=== PATIENT | female | born 1940 | race Caucasian/White ===

== ENCOUNTER → 2016-08-20 | Outpatient (CLI) | payer MEDICARE | LOC: RAD 12:53 | PROVIDERS: ATTEND Family Medicine | DX: N63 Unspecified lump in breast (principal); N61.0 Mastitis without abscess | CPT/HCPCS: 76642; G0204 ==

== ENCOUNTER → 2016-08-25 | Outpatient (CLI) | payer MEDICARE | LOC: RAD 12:45 | PROVIDERS: ATTEND Surgery | DX: N63 Unspecified lump in breast (principal) | CPT/HCPCS: 76642; G0206 ==

== ENCOUNTER 2016-08-31 02:27 | Emergency (ER) | payer MEDICARE ==
[~2016-08-31] VITALS: Ht 160 cm; Wt 81.5 kg
[~2016-08-31 02:27] MED LIST: ASPI-504 PO; NAPR220T76 PO; PREMARIN VAG CR45 GM VG; RALO60TA PO
--- OUTSIDE RECORDS SUMMARY | 2016-08-31 02:30 | XMS REPORT | Continuity of Care Document ---
Author Author [facility] Address Unknown Phone Unavailable Allergies Active Description Code Type Severity Reaction Onset Reported/Identified Relationship to Patient Clinical Status Yes Penicillins [id number] Drug Allergy Mild Hives 01/03/2014 Medications Problems Date Dx Coded Attending Type Code Diagnosis Diagnosed By 10/12/2012 Ot 723.1 10/12/2012 Ot 729.1 12/03/2012 Ot 723.1 12/03/2012 Ot V57.1 04/05/2013 MEENA MANUEL, VIJAY W Ot 729.1 04/05/2013 MEENA MANUEL, VIJAY W Ot V57.1 01/03/2014 GITA MANUEL, SARAH Mojica Ot 786.05 01/03/2014 GITA MANUEL, SARAH Mojica Ot 786.50 01/03/2014 GITA MANUEL, SARAH [place] Ot 794.31 02/17/2014 MEENA MANUEL, VIJAY W Ot 410.92 02/17/2014 MEENA MANUEL, VIJAY W Ot 413.9 02/17/2014 MEENA MANUEL, VIJAY W Ot V57.89 07/05/2014 Ot V76.12 07/05/2014 Ot 723.1 07/05/2014 Ot 722.4 07/05/2014 Ot 723.1 07/05/2014 Ot 723.1 07/05/2014 MEENA MANUEL, VIJAY W Ot 786.50 07/05/2014 MEENA MANUEL, VIJAY W Ot 790.99 07/21/2014 MEENA MANUEL, VIJAY W Ot V76.12 07/28/2014 MEENA MANUEL, VIJAY W Ot V76.12 08/20/2016 MEENA MANUEL, VIJAY W Ot N63 UNSPECIFIED LUMP IN BREAST 08/20/2016 MEENA MANUEL, VIJAY W Ot N63 UNSPECIFIED LUMP IN BREAST 08/23/2016 MEENA MANUEL, VIJAY W Ot N61.0 MASTITIS WITHOUT ABSCESS 08/23/2016 MEENA MANUEL, VIJAY W Ot N63 UNSPECIFIED LUMP IN BREAST 08/25/2016 ZHANG MANUEL, EDANJEL S Ot N63 UNSPECIFIED LUMP IN BREAST 08/25/2016 MEENA MANUEL, VIJAY W Ot N61.0 MASTITIS WITHOUT ABSCESS 08/25/2016 MEENA MANUEL, VIJAY W Ot N63 UNSPECIFIED LUMP IN BREAST 08/25/2016 ZHANG MANUEL, ELEAZAR S Ot N63 UNSPECIFIED LUMP IN BREAST 08/26/2016 ZHANG MANUEL, ELEAZAR S Ot N63 UNSPECIFIED LUMP IN BREAST 08/26/2016 ZHANG MANUEL, ELEAZAR S Ot N63 UNSPECIFIED LUMP IN BREAST 08/27/2016 ZHANG MANUEL, ELEAZAR S Ot N63 UNSPECIFIED LUMP IN BREAST Procedures Results Test Result Range PATHOLOGY - 08/20/16 13:00 PATHOLOGY WPM Encounters ACCT No. Visit Date/Time Discharge Status Pt. Type Provider Facility Loc./Unit Complaint [id number] 07/05/2014 09:24:00 2014 23:59:59 CLS Outpatient MEENA MANUEL, [facility] RAD [id number] 02/08/2014 10:30:00 2013 12:00:00 DIS Outpatient MEENA MANUEL, [facility] CR [id number] 01/09/2014 09:18:00 2013 23:59:59 CLS Outpatient [id number] 01/03/2014 18:30:00 2013 23:59:59 CLS Outpatient MEENA MANUEL, [facility] EMS [id number] 01/03/2014 16:50:00 2013 19:30:00 DIS Emergency GITA MANUEL, [facility] ED [id number] 01/27/2013 13:45:00 2012 00:01:00 DIS Outpatient MEENA MANUEL, [facility] PT [id number] 09/03/2016 09:30:00 PEN Preadmit ZHANG MANUEL, [facility] RAD LT. MASTECTOMY W/SENTINEL NODE BX. [id number] 08/31/2016 02:27:00 PEN Preadmit [facility] ED [id number] 08/25/2016 12:45:00 ACT Outpatient ZHANG MANUEL, ANJEL [facility] RAD [id number] 08/20/2016 12:53:00 ACT Outpatient MEENA MANUEL, [facility] RAD [facility] [id number] 11/25/2012 13:45:00 Document Registration [id number] 10/21/2012 13:17:00 Document Registration [id number] 10/12/2012 10:49:00 Document Registration [id number] 08/10/2012 13:26:00 Document Registration [id number] 07/30/2012 11:20:00 Document Registration [id number] 06/10/2012 12:41:00 Document Registration [id number] 01/02/2012 13:51:00 Document Registration
--- OUTSIDE RECORDS SUMMARY | 2016-08-31 02:33 | XMS REPORT | Continuity of Care Document ---
Author Author [facility] Address Unknown Phone Unavailable Allergies Active Description Code Type Severity Reaction Onset Reported/Identified Relationship to Patient Clinical Status Yes Penicillins [id number] Drug Allergy Mild Hives 01/03/2014 Medications Problems [...] Status Pt. Type Provider Facility Loc./Unit Complaint [id number] 07/05/2014 09:24:00 2014 23:59:59 CLS Outpatient MEENA MANUEL, [facility] RAD [id number] 02/08/2014 10:30:00 2013 12:00:00 DIS Outpatient MEENA MANUEL, [facility] CR [id number] 01/09/2014 09:18:00 2013 23:59:59 CLS Outpatient [id number] 01/03/2014 18:30:00 2013 23:59:59 CLS Outpatient MEENA MANUEL, [facility] EMS [id number] 01/03/2014 16:50:00 2013 19:30:00 DIS Emergency GITA MANUEL, SARAH [facility] ED [id number] 01/27/2013 13:45:00 2012 00:01:00 DIS Outpatient MEENA MANUEL, [facility] PT [id number] 09/03/2016 09:30:00 PEN Preadmit ZHANG MANUEL, [facility] RAD LT. MASTECTOMY W/SENTINEL NODE BX. [id number] 08/31/2016 02:29:00 ACT Emergency EVELYN MANUEL, [facility] ED [id number] 08/25/2016 12:45:00 ACT Outpatient ZHANG MANUEL, [facility] RAD [id number] 08/20/2016 12:53:00 ACT Outpatient MEENA MANUEL, VIJAY [facility] RAD MASTITIS [id number] 11/25/2012 13:45:00 Document Registration [id number] 10/21/2012 13:17:00 Document Registration [id number] 10/12/2012 10:49:00 Document Registration [id number] 08/10/2012 13:26:00 Document Registration [id number] 07/30/2012 11:20:00 Document Registration [id number] 06/10/2012 12:41:00 Document Registration [id number] 01/02/2012 13:51:00 Document Registration
[2016-08-31] MEDS ORDERED: LSRT50T PO (02:42)
[2016-08-31] MEDS ORDERED: MULT-1034 PO (02:42)
[2016-08-31] MEDS ORDERED: ATOR20TA PO (02:42)
[2016-08-31] MEDS ORDERED: PANT40TA3 PO (02:42)
[2016-08-31] MEDS ORDERED: diphenhydrAMINE 50 MG/ML INJ (BENADRYL) IV ONE ×2 (02:45→03:45)
[2016-08-31] MEDS ORDERED: FAMOTIDINE IV 20 MG in SODIUM CHLORIDE VIAL (PF) 10 ML IV ONE (02:45)
[2016-08-31] MEDS ORDERED: methylPREDNISolone 125 MG (Solu-MEDROL) VIAL IV ONE (02:45)
[2016-08-31] MEDS ORDERED: PRED20TA PO (02:58)
[2016-08-31] MEDS ORDERED: SODIUM CHLORIDE FLUSH 10 ML SYR IV PRN (03:05)
--- NOTE | 2016-08-31 03:46 | NUR ---
ITCHING BETTER BUT RASH UNCHANGED
--- NOTE | 2016-08-31 04:20 | NUR ---
itching better rash still there
[2016-08-31] MEDS ORDERED: CETIRIZINE 1 MG/ML PO ONE (05:05)
[2016-08-31] MEDS ORDERED: LORATADINE (CLARITIN) 10 MG TAB PO ONE (05:15)
[2016-08-31 05:16] VITALS: BP 143/65
== END 2016-08-31 05:29 | disposition home or self-care (01) ==
LOC: ED 02:29
DX: L50.0 Allergic urticaria (principal); T36.1X5A Adverse effect of cephalosporins and other beta-lactam antibiotics, initial encounter
CPT/HCPCS: 96374; 96375; 96376; 99283; A9270; J1200; J2930; J3490; J7050

== ENCOUNTER → 2016-09-02 | Outpatient (CLI) | payer MEDICARE ==
[~2016-09-02] MED LIST changes: +ATOR20TA PO; +FLUT16SP NSEACH; +LSRT50T PO; +MULT-1034 PO; +PANT40TA3 PO; +PRED20TA PO; +TRM50T PO
[2016-09-02 09:10] LABS: BASOPHILS % (AUTO) 0 % (0-2); EOSINOPHILS % (AUTO) 0 % (0-4); LYMPHOCYTES # (AUTO) 1.3 X10^3; MEAN CORPUSCULAR HEMOGLOBIN 29.2 PG (26.0-34.0); MEAN CORPUSCULAR HGB CONC 32.3 g/dL (31.0-37.0); MEAN CORPUSCULAR VOLUME 91 FL (80-100); MEAN PLATELET VOLUME 9.4 FL (6.0-9.5); MONOCYTES # (AUTO) 0.3 X10^3; MONOCYTES % (AUTO) 3 % (3-11); NEUTROPHILS # (AUTO) 7.1 X10^3; NEUTROPHILS % (AUTO) 81 % (51-67); PLATELET COUNT 247 10^3uL (150-450); WHITE BLOOD COUNT 8.71 10^3uL (4.0-11.0)
[2016-09-02 09:44] LABS: ALBUMIN 3.8 g/dL (3.4-5.0); CALCULATED IONIZED CALCIUM 4.1 mg/dL (3.8-4.6); TOTAL PROTEIN 7.3 g/dL (6.4-8.5)
--- NOTE | 2016-09-02 11:07 | Diagnostic Imaging Report ---
INDICATION: Breast cancer PA and lateral chest obtained at 9:24 a.m., there is no prior study for comparison. FINDINGS: Heart is mildly enlarged. There is some linear scarring or atelectasis in the left base. Lungs are otherwise clear. There is no pneumothorax or pleural fluid. Pacemaker is unchanged with right atrial and right ventricular leads. There are surgical clips over the left axilla. IMPRESSION: Mild cardiomegaly. No acute consolidation or pleural fluid. Some mild linear scarring or atelectasis in the left base is noted. Dictated by: Dictated on workstation # [id number]
== END ==
LOC: LAB 09:00
PROVIDERS: ATTEND Surgery
DX: Z01.818 Encounter for other preprocedural examination (principal); R05 Cough; D05.12 Intraductal carcinoma in situ of left breast; I10 Essential (primary) hypertension; Z95.0 Presence of cardiac pacemaker; I44.1 Atrioventricular block, second degree
CPT/HCPCS: 36415; 71020; 80053; 85025; 93005

== ENCOUNTER 2016-09-03 08:13 | Day surgery (SDC) | payer MEDICARE, OTHER ==
[2016-09-03] VITALS (13 sets, daily range): BP systolic 79–153; BP diastolic 42–80
[~2016-09-03] VITALS: Ht 160 cm; Wt 81.8 kg
[~2016-09-03 08:13] MED LIST changes: +ACETAMINOPHEN 500 MG TAB (TYLENOL) PO SCH; +CLINDAMYCIN IV SCH; -FLUT16SP NSEACH; +LACTATED RINGERS 1,000 ML IV SCH; +SODIUM CHLORIDE FLUSH 3 ML SYR IV SCH; +SODIUM CHLORIDE IV SCH; -TRM50T PO
--- OUTSIDE RECORDS SUMMARY | 2016-09-03 08:17 | XMS REPORT | Continuity of Care Document ---
Author Author [facility] Address Unknown Phone Unavailable Allergies Active Description Code Type Severity Reaction Onset Reported/Identified Relationship to Patient Clinical Status Yes Cephalosporins [id number] Drug Allergy Severe HIVES 08/31/2016 Yes Penicillins [id number] Drug Allergy Mild Hives 08/31/2016 Medications Problems Date Dx Coded Attending Type Code Diagnosis Diagnosed By 10/12/2012 Ot 723.1 10/12/2012 Ot 729.1 12/03/2012 Ot 723.1 12/03/2012 Ot V57.1 04/05/2013 MEENA MANUEL, VIJAY [place] Ot 729.1 04/05/2013 MEENA MANUEL, VIJAY [place] Ot V57.1 01/03/2014 GITA MANUEL, SARAH Mojica Ot 786.05 01/03/2014 GITA MANUEL, SARAH [place] Ot 786.50 01/03/2014 GITA MANUEL, SARAH [place] Ot 794.31 02/17/2014 MEENA MANUEL, VIJAY [place] Ot 410.92 02/17/2014 MEENA MANUEL, VIJAY W Ot 413.9 02/17/2014 MEENA MANUEL, VIJAY W Ot V57.89 07/05/2014 Ot V76.12 07/05/2014 Ot 723.1 07/05/2014 Ot 722.4 07/05/2014 Ot 723.1 07/05/2014 Ot 723.1 07/05/2014 MEENA MANUEL, VIJAY W Ot 786.50 07/05/2014 MEENA MANUEL, VIJAY W Ot 790.99 07/21/2014 MEENA MANUEL, VIJAY [place] Ot V76.12 07/28/2014 MEENA MANUEL, VIJAY [place] Ot V76.12 08/20/2016 MEENA MANUEL, VIJAY W Ot N63 UNSPECIFIED LUMP IN BREAST 08/20/2016 MEENA MANUEL, VIJAY [place] Ot N63 UNSPECIFIED LUMP IN BREAST 08/23/2016 MEENA MANUEL, VIJAY W Ot N61.0 MASTITIS WITHOUT ABSCESS 08/23/2016 MEENA MANUEL, VIJAY W Ot N63 UNSPECIFIED LUMP IN BREAST 08/25/2016 ZHANG MANUEL, EDWARD S Ot N63 UNSPECIFIED LUMP IN BREAST 08/25/2016 MEENA MANUEL, VIJAY W Ot N61.0 MASTITIS WITHOUT ABSCESS 08/25/2016 MEENA MANUEL, VIJAY W Ot N63 UNSPECIFIED LUMP IN BREAST 08/25/2016 ZHANG MANUEL, EDANJEL S Ot N63 UNSPECIFIED LUMP IN BREAST 08/26/2016 ZHANG MANUEL, EDANJEL S Ot N63 UNSPECIFIED LUMP IN BREAST 08/26/2016 ZHANG MANUEL, EDANJEL S Ot N63 UNSPECIFIED LUMP IN BREAST 08/27/2016 ZHANG MANUEL, EDANJEL S Ot N63 UNSPECIFIED LUMP IN BREAST Procedures Results Test Result Range PATHOLOGY - 08/20/16 13:00 PATHOLOGY WPM Encounters ACCT No. Visit Date/Time Discharge Status Pt. Type Provider Facility Loc./Unit Complaint [id number] 08/31/2016 02:29:00 2016 05:29:00 DIS Emergency EVELYN MANUEL, [facility] ED [id number] 07/05/2014 09:24:00 2014 23:59:59 CLS Outpatient MEENA MANUEL, [facility] RAD [id number] 02/08/2014 10:30:00 2013 12:00:00 DIS Outpatient MEENA MANUEL, [facility] CR [id number] 01/09/2014 09:18:00 2013 23:59:59 CLS Outpatient [id number] 01/03/2014 18:30:00 2013 23:59:59 CLS Outpatient MEENA MANUEL, [facility] EMS [id number] 01/03/2014 16:50:00 2013 19:30:00 DIS Emergency GITA MANUEL, [facility] ED [id number] 01/27/2013 13:45:00 2012 00:01:00 DIS Outpatient MEENA MANUEL, [facility] PT [id number] 09/03/2016 09:30:00 PEN Preadmit ZHANG MANUEL, [facility] RAD LT. MASTECTOMY W/SENTINEL NODE BX. [id number] 08/25/2016 12:45:00 ACT Outpatient ZHANG MANUEL, ELEAZAR [facility] RAD [id number] 08/20/2016 12:53:00 ACT Outpatient MEENA MANUEL, VIJAY [facility] RAD MASTITIS [id number] 11/25/2012 13:45:00 Document Registration [id number] 10/21/2012 13:17:00 Document Registration [id number] 10/12/2012 10:49:00 Document Registration [id number] 08/10/2012 13:26:00 Document Registration [id number] 07/30/2012 11:20:00 Document Registration [id number] 06/10/2012 12:41:00 Document Registration [id number] 01/02/2012 13:51:00 Document Registration
[2016-09-03] MEDS ORDERED: BUPIVACAINE/EPINEPHRINE 0.25%-1:200,000 (MARCAINE) 30 ML VIAL INJ ONE (10:43)
[2016-09-03] MEDS ORDERED: METHYLENE BLUE 0.5% 50 MG/10 ML VIAL ONE (11:00)
[2016-09-03] MEDS ORDERED: PROPOFOL 20 ML IV ONE (13:10)
[2016-09-03] MEDS ORDERED: MIDAZOLAM 2 MG/2 ML (VERSED) VIAL ONE (13:10)
[2016-09-03] MEDS ORDERED: ALFENTANIL 500 MCG/ML (ALFENTA) 5 ML AMP IV ONE (13:10)
[2016-09-03] MEDS ORDERED: ONDANSETRON 2 MG/ML (Z0FRAN) 2 ML VIAL ONE (13:49)
[2016-09-03] MEDS ORDERED: diphenhydrAMINE 50 MG/ML INJ (BENADRYL) ONE (13:49)
[2016-09-03] MEDS ORDERED: FLUT16SP NSEACH (14:07)
[2016-09-03] MEDS ORDERED: KETOROLAC 60 MG/2 ML (TORADOL) VIAL IM ONE (15:54)
[2016-09-03] MEDS ORDERED: SUCCINYLCHOLINE 20 MG/ML 10 ML VIAL ONE (15:56)
[2016-09-03] MEDS ORDERED: ACETAMINOPHEN 325 MG TAB (TYLENOL) PO PRN (16:30)
[2016-09-03] MEDS ORDERED: NALBUPHINE 10 MG/ML (NUBAIN) 1 ML AMP IV PRN (16:30)
[2016-09-03] MEDS ORDERED: ONDANSETRON 2 MG/ML (Z0FRAN) 2 ML VIAL IV PRN (16:30)
[2016-09-03] MEDS ORDERED: morphine INJ 2 MG/ML 1 ML SYRINGE ONE (16:31)
[2016-09-03] MEDS ORDERED: NS FLUSH 3 ML PRN IV (16:45)
[2016-09-03] MEDS ORDERED: NS FLUSH 10 ML PRN IV (16:45)
--- NOTE | 2016-09-03 17:10 | NUR ---
Patient arrives to floor to room 317 via bed from OR accompanied by and daughter. Reports left sided chest pain rated 10/10 contributed to surgery. PRN PO Ultram provided due to recent IV Morphine. 2L of 02 intact per nc. Respirations even and non-labored. Telemetry applied. Two NICOLE drains intact to left surgical site labeled A and B. Upon arrival 40ml serous drainage drained from A, 30 ml serous drainage drained from B. Updated on plan of care for shift. Consuming jello at this time. Call light in reach.
[2016-09-03] MEDS ORDERED: SODIUM CHLORIDE 250 ML IV SCH (19:35)
--- NOTE | 2016-09-03 19:35 | NUR ---
Patient's current vital signs = T- 96.4, P- 71, R- 20, BP- 79/45, 02- 97% on 2L of 02. Patient awake and alert. Denies dizziness or other symptoms. Dr. Phan notified about BP, requests nurse inform hospitalist. Dr. Day informed and orders to administer 250ml of NS@1000ml/hour. Initiated by Margot Diggs RN. Will continue to monitor.
--- NOTE | 2016-09-03 20:40 | NUR ---
Patient resting in bed. Had fluid bolus. BP-95/49 P-68 R-16 [address]xygen saturation 96%. Dr notified, no further orders. Left chest dressing has a moderate amount of bloody drainage. Yosi wrap around her chest dry and intact. NICOLE drains intact and functioning, draining bloody drainage. Moves left arm well . Left radial pulse strong. Telemetry shows NS. Taking water and some jello without nausea. Comfortable at present. Call light within reach.
--- NOTE | 2016-09-03 22:17 | History and Physical (E) ---
History & Physical PCP: Gaby Carvalho MD CCpt. is s/p left total mastectomy today and Dr Phan has requested the Hospitalist service to help manage the medical side of her post op recovery. HPI Pt. first noticed a problem with her left breast and subsequent workup and biopsy defined a cancer which was best treated with a left total mastectomy and a sentinel node biopsy. PMH AV block,mobitz 1, resolved PSH perm. 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 HOME MEDICATIONS: Please see list at end of report. FH Non contributory for this problem. SH patient is ;no children.patient is retired. ROS CONSTITUTION: Denies weight loss or gain. Denies fever or chills. HEENT: No change in vision or hearing. No sores in mouth, sore throat. CV: No chest pain, palpitations. PULM: No cough, shortness of breath, difficulty breathing. GI: No upset stomach, nausea, vomiting, constipation, or diarrhea. No blood in stool. : No dysuria. No blood in urine. MS: No new muscle or joint aches and pains. NEURO: No numbness or tingling. No weakness. INTEG: No rashes, lesions, or sores. ENDO: No heat or cold intolerance. No polydipsia or polyuria. HEME/LYMPH: No easy bruising or bleeding. No swollen glands. PSYCH: No change in mood or behavior. OBJECTIVE GEN: Awake, alert, oriented, NAD HEENT: EOMI, PERRL, dry oral mucosa. CV: RRR S1 S2 normal with no murmur LUNGS: CTA Bilaterally ABD: Soft, NT/ND with normal bowel sounds. EXTR: No C/C/E. Normal peripheral pulses. INTEG: No rash. NEURO: No focal motor neuro deficit. chest heavily wrapped and bandaged due to s/p left total mastectomy today. Weight: 81.8 kg LABS troponin is elevated. we shall recheck it tomorrow. 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 Lizarraga medically in her post op recovery and we shall keep you closely informed. Allergies/Home Medications Allergies: Coded Allergies: Cephalosporins (Verified Allergy, Severe, HIVES, 08/31/16) Penicillins (Verified Allergy, Mild, Hives, 08/31/16) amoxicillin (Verified Allergy, Unknown, 09/02/16) cefaclor (Verified Allergy, Unknown, 09/02/16) sulfamethoxazole (Verified Allergy, Unknown, 09/02/16) trimethoprim (Verified Allergy, Unknown, 09/02/16) Reported Home Medications Scheduled Atorvastatin (Lipitor) 20 MG PO HS (Reported) Estrogens,Conjugated (Premarin) 0.5 GM VG twice weekly (Reported) Fluticasone Propionate (Flonase Nasal [place]gett 50mcg/actuation) 1 SPRAY NSEACH DAILY (Reported) Losartan Potassium (Losartan Potassium) 50 MG PO DAILY (Reported) Mu-Vits-Min Th/Lycopene/Lutein (Centrum Silver Tablet) 1 EACH PO DAILY (Reported ) Pantoprazole Sodium (Pantoprazole Sodium) 40 MG PO DAILY (Reported) Discontinued Medications Aspirin (Baby Aspirin) 81 MG PO DAILY (Reported) Discontinued Reason: Update list Naproxen Sodium (Aleve) 220 MG PO DAILY (Reported) Discontinued Reason: Update list Prednisone (Prednisone) 3 TAB PO DAILY Discontinued Reason: Course completed Copies to: End of Report . EDDY ORNEALS DO Sep 03, 2016 22:17
--- NOTE | 2016-09-03 22:55 | NUR ---
Nubain administered as ordered for pain 01/08. Patient taking fluids without nausea. IV patent without complications to site. NICOLE-A had 75cc output. NICOLE-B had 55 cc output. Patient assisted to the bathroom and voided 150 cc blue tinged urine. Patient moves well. Oxygen removed as sats 96%. No respiratory difficulties noted.
--- NOTE | 2016-09-04 00:41 | NUR ---
Tramadol 100mg administered for incisional discomfort.
[2016-09-04 04:54] VITALS: BP 108/51
--- NOTE | 2016-09-04 06:30 | NUR ---
Rested at long intervals tonight. C and DB well. No new drainage on dressing. Still has a moderate amount of drainage. Yosi wrap remains dry and intact around chest. NICOLE-A had 50cc out, NICOLE-B had 10 cc out of bloody drainage. IV patent. When taking po intake place to . No concerns at this time.
[2016-09-04 08:06] VITALS: BP 113/56
--- NOTE | 2016-09-04 08:26 | NUR ---
Pt resting in bed, ate 75% breakfast tray without c/o. IVF stopped per orders- SL at this time. Drains x2 intact with sanguinous drainage in both. FLAQUITO bandage in place around chest- dressings underneath are saturated with dry dark red drainage. Remains on 2L nc at this time- placed by RT overnight- will titrate as tolerated. call light within reach- calls appropriately. Addendum: 09/04/16 at 0915 by Stacia Alegria RN Tramadol 100mg PO given for premed to ambulating halls.
[2016-09-04] MEDS ORDERED: NS FLUSH 3 ML DAILY IV SCH (09:00)
[2016-09-04 09:03] LABS: BASOPHILS % (AUTO) 0 % (0-2); EOSINOPHILS # (AUTO) 0.1 10^3uL; EOSINOPHILS % (AUTO) 2 % (0-4); LYMPHOCYTES # (AUTO) 2.3 X10^3; MEAN CORPUSCULAR HEMOGLOBIN 29.2 PG (26.0-34.0); MEAN CORPUSCULAR VOLUME 92 FL (80-100); MONOCYTES # (AUTO) 0.6 X10^3; MONOCYTES % (AUTO) 9 % (3-11); NEUTROPHILS # (AUTO) 3.7 X10^3; NEUTROPHILS % (AUTO) 55 % (51-67); PLATELET COUNT 175 10^3uL (150-450); WHITE BLOOD COUNT 6.67 10^3uL (4.0-11.0)
[2016-09-04 09:15] LABS: MEAN CORPUSCULAR HGB CONC 31.6 g/dL (31.0-37.0)
--- NOTE | 2016-09-04 09:30 | NUR ---
MED REC COMPLETED-current med list obtained from Ext Med History application and patient's PCP.
--- NOTE | 2016-09-04 11:36 | OPERATIVE REPORT ---
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 Grampian lymph node biopsy, deep left axilla. 2. Left total mastectomy. SURGEON: Rick Phan MD EMAIL PRODUCER: Subha Arnold RN, CSFA ANESTHESIA: General orotracheal POSITION: Supine with arms abducted. PREP: Chlorhexidine ESTIMATED BLOOD LOSS: 225 mL FINDINGS: 1. Large breast mass, which appeared to also involve the nipple and the areola in the lateral aspect of the left breast previously biopsy positive for high-grade DCIS. 2. Four sentinel lymph nodes were identified. One was hot and blue, and the other 3 hot. INDICATIONS: This patient presented with a large breast mass, which also had associated skin dimpling and erythema. This apparently improved with antibiotics. Core needle biopsies revealed high-grade DCIS. Because of the large size of the mass, and involvement of the nipple areolar complex, mastectomy was recommended. Since it was unknown whether the patient had an invasive cancer within the mass, a sentinel lymph node biopsy was also proposed to be done at the same time. Informed consent discussed with the patient and family who understood and wished to proceed. OPERATIVE NOTE: The patient went to radiology 2 hours prior to the procedure and had injection of technetium 99m sulphur colloid in the subareolar position. Preop gamma probe interrogation revealed satisfactory counts in the axilla. Following satisfactory induction of anesthesia the patient was prepped and draped in sterile fashion. Methylene blue 10 mL was infiltrated in the subcutaneous tissues around the tumor mass and the breast massaged for 5 minutes. A skin crease incision was made in the axilla at the caudal apex of the hair-bearing area. This was deepend into the soft tissues. Using the gamma probe and visual inspection, 4 lymph nodes were identified. The first had blue lymphatics extending to the lymph node and also had elevated counts of 2238 on a 10-second count. Soft tissues attached to the lymph node were clamped in multiple bites, divided and ligated with 3-0 Vicryl. This was submitted to pathology. Three additional lymph nodes were found that were hot, but not blue. Ten second counts for these measured 1756, 592, and 815 respectively. These were also separately submitted to pathology after being removed in the same manner described above. Post-removal basin gamma probe 10 second count was 13. Next attention was turned to the mastectomy. An elliptical skin incision was made wide of the palpable mass, skin changes, and areola. This was deepened with sharp dissection. Skin flaps were created with electro-cautery. Cephalad dissection was carried to the deltopectoral groove, caudal to the costal margin, medial to the sternum and lateral to the axilla. Individual bleeding points were ligated or suture ligated with 3-0 Vicryl. The breast including pectoral fascia was removed from pectoralis muscle with sharp dissection. Attachments to the axillary content were clamped in multiple bites, divided and ligated with 3-0 Vicryl. The specimen was marked and submitted to pathology. The operative site was irrigated with warm water, which was suctioned revealing good hemostasis. Closure was accomplished as follows. Two #19 Jay drains were placed through separate stab wounds caudal to the lateral aspect of the incision. One drain was carried along the caudal margin, the other into the axilla and across the cephalad margin of the skin flaps. The drains were anchored to the skin with 2-0 silk suture. The subcutaneous tissues were reapproximated with simple interrupted 3-0 Vicryl suture and the skin incision closed with prateek. Local anesthetic of 0.25% Marcaine with epinephrine was infused through the catheters and allowed to dwell for 5 minutes for postop pain control. Occlusive dressing was applied. The bulbs were then applied to the drainage catheters and the patient transferred to recovery in stable condition. Final instrument, needle and sponge counts correct.
[2016-09-04 11:38] VITALS: BP 113/53
--- NOTE | 2016-09-04 12:21 | NUR ---
Dr. Phan has been to room- is discharging patient today.
--- NOTE | 2016-09-04 12:29 | Progress Note (E) ---
Progress Note Surgery note Subjective: Patient is comfortable. No chest pain or dyspnea. Ambulating and has voided. No nausea. Tolerating orals well. Objective: Vitals stable. Drainage blood tinged and 320 since OR. Dressings dry and intact. Lungs clear. Hgb 9.4 this am. Impression: Condition: good Recommendations: As discussed with Dr. Day, hospitalist, OK to discharge from [facility]. I will arrange for her to see her postdoctoral research fellow, Dr. Sandoval Gill in [place] for a pacemaker check. ELEAZAR HOLCOMB MD Sep 04, 2016 12:29
--- NOTE | 2016-09-04 12:32 | Discharge Instructions (E) ---
Discharge Instructions Instructions Leave dressing intact. May change if soiled. Keep clean and dry. Empty drainage bulbs and record amounts as instructed (see sheets previously given to you). Activity Instructions Normal as is comfortable. Do not drive until pain free, off pain meds. Doctor's Appointment Dr. Phan for September 08. Discharge Diet: Heart Healthy ELEAZAR PHAN MD Sep 04, 2016 12:32
[2016-09-04] MEDS ORDERED: TRM50T PO (12:33)
--- NOTE | 2016-09-04 12:41 | Progress Note (E) ---
Progress Note Pt. is seen walking in the [place] and she is doing quite well. She is moving with no assistance and is walking quickly and without obvious pain.She denies sob; denies headache or head pain;denies wheezing;denies abdominal pains and denies lower extremity pain when walking. 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 is really doing well for post op day # 1. plan: Dr Phan plans to discharge patient to home today. EDDY ORNELAS DO Sep 04, 2016 12:41
--- NOTE | 2016-09-04 13:40 | NUR ---
Jimmy Zhu, Pharm. D. Candidate 2017 reviewed discharge medications with patient. Provided patient handout information for new medications. No additional questions or concerns. Patient verbalized understanding of medications.
--- NOTE | 2016-09-04 13:50 | NUR ---
Discharge instructions reviewed with patient and . verbalize understanding. Script x1 given. IV dc'd from [facility]. Tip intact, site bleeding pressure applied. Getting dressed then will dismiss to home with .
--- NOTE | 2016-09-04 14:11 | NUR ---
Pt dismissed to home via w/c accompanied by .
--- NOTE | 2016-09-05 15:25 | Diagnostic Imaging Report ---
INDICATION: Left breast cancer. TECHNIQUE: After explaining the planned procedure to the patient, maximum sterile barrier was utilized for periareolar intradermal injection of approximately 1.1 mCi technetium-99m sulfur colloid in four aliquots. Patient tolerated the procedure well and was taken to the operating room for sentinel node excision. IMPRESSION: Successful periareolar intradermal isotope injection. Dictated by: Dictated on workstation # [id number]
== END 2016-09-04 14:12 | disposition home or self-care (01) ==
LOC: ASC 08:13 → EDSTATUS 09:30 → MED/SURG 13:41 → ASC 09-04 14:12
PROVIDERS: ATTEND Surgery
DX: C50.012 Malignant neoplasm of nipple and areola, left female breast (principal); I10 Essential (primary) hypertension; I42.9 Cardiomyopathy, unspecified; E66.9 Obesity, unspecified; Z68.31 Body mass index [BMI] 31.0-31.9, adult; Z95.0 Presence of cardiac pacemaker
CPT/HCPCS: 19303; 36415; 38525; 78195; 85025; 88305; 88307; 88341; 88342; 94760; A9270; A9541; J0330; J1200; J1885; J2250; J2270; J2300; J2405; J7030; J7120; Q9968